=== PATIENT | male | born 1975 | race Caucasian/White ===

== ENCOUNTER → 2016-09-05 | Outpatient (CLI) | payer BC ==
--- NOTE | 2016-09-05 16:17 | KCIC ---
PROCEDURE Thoracic and lumbar radiographs. HISTORY Upper back pain and tightness COMPARISON None FINDINGS Lumbar spine: Three views of the lumbar spine are submitted. Lumbar vertebral body stature and AP alignment are adequate. Intervertebral disc spaces are overall adequate. There is anterolateral osteophyte formation at L3-4. There is facet degenerative change greatest L4-5 and L5-S1. No acute osseous abnormality is identified by radiographs. Thoracic spine: Three views of the thoracic spine are submitted. Thoracic vertebral body stature and AP alignment are adequate, somewhat limited visualization of the superior 2 thoracic vertebral bodies on lateral view due to overlying bone and soft tissues. There is very mild superior thoracic levoscoliosis. Intrapediculate distance is preserved. No acute osseous abnormality is identified by radiographs. There is degenerative disc disease and spondylosis of visualized inferior cervical level. IMPRESSION 1. No acute osseous abnormality is identified by radiographs. 2. There is mild superior thoracic levoscoliosis. 3. There is degenerative disc disease and spondylosis of visualized superior cervical level, not fully evaluated. Electronically signed by: Marcelino Bustos MD (Sep 05, 2016 16:15:08)
== END | disposition home or self-care (01) ==
LOC: KCIC 15:35
PROVIDERS: ATTEND Chiropractor
DX: M54.9 Dorsalgia, unspecified (principal); R07.89 Other chest pain
CPT/HCPCS: 72072; 72110